=== PATIENT | male | born 1945 | race Caucasian/White ===

== ENCOUNTER 2022-08-10 09:38 | Day surgery (SDC) | payer MEDICARE, BC ==
[2022-08-04 15:41] LABS: BASOPHILS # (AUTO) 0.1 X10'3 (0-0.2); EOSINOPHILS # (AUTO) 0.4 X10'3 (0-0.9); EOSINOPHILS % (AUTO) 4.9 % (0-6); LYMPHOCYTES # (AUTO) 1.7 X10'3 (1.1-4.8); MEAN CORPUSCULAR HEMOGLOBIN 29.9 PG (27.0-31.0); MEAN CORPUSCULAR HGB CONC 33.4 g/dL (33.0-36.5); MEAN CORPUSCULAR VOLUME 89.7 FL (78-98); MEAN PLATELET VOLUME 7.7 FL (7.4-10.4); MONOCYTES # (AUTO) 0.8 X10'3 (0-0.9); MONOCYTES % (AUTO) 10.9 % (2-12); NEUTROPHILS # (AUTO) 4.7 X10'3 (1.8-7.7); NEUTROPHILS % (AUTO) 61.2 % (42-75); PRE OP HEMATOCRIT 47.3 % (42.0-52.0); PRE OP HEMOGLOBIN 15.8 g/dL (14.0-17.9); PRE OP PLATELET COUNT 156 X10'3 (140-440); RED BLOOD COUNT 5.27 X10'6 (4.70-6.10); RED CELL DISTRIBUTION WIDTH 13.9 % (11.5-14.5)
[2022-08-04 16:03] LABS: ALBUMIN 4.4 G/DL (3.4-5.0); ALBUMIN/GLOBULIN RATIO 1.2 (1.1-1.5); ALKALINE PHOSPHATASE 85 IU/L (46-116); BLOOD UREA NITROGEN 22 MG/DL (7-18); BUN/CREATININE RATIO 18.2 (5.4-32.0); CALCIUM 9.8 MG/DL (8.5-10.1); CHLORIDE 102 MMOL/L (99-107); CREATININE 1.21 MG/DL (0.60-1.10); PRE OP ALT 40 U/L (30-65); PRE OP ANION GAP 11 (8-16); PRE OP AST 24 U/L (10-37); PRE OP BILIRUB, TOTAL 2.7 MG/DL (0.0-1.0); PRE OP GLUCOSE 96 MG/DL (70-104); PRE OP POTASSIUM 3.9 MMOL/L (3.4-5.1); PRE OP SODIUM 141 MMOL/L (135-145); TOTAL CARBON DIOXIDE 27.7 MMOL/L (24-32); eGFR 58 ML/MIN
[~2022-08-10] VITALS: Ht 162.6 cm; Wt 67.3 kg
[2022-08-10] VITALS (8 sets, daily range): BP systolic 128–151; BP diastolic 79–85
[~2022-08-10 09:38] MED LIST: ASPI-611 PO; ATOR80TA PO; CENTRUM SILVER; CHANCA PIEDRA; DOCUMENT DATE & TIME OF BETA-BLOCKER PO ONE; GLIM4TAB7 PO; LISI40TA13 PO; METO-411 PO; acetaminophen 325mg tablet PO ONE; ceFAZolin inj. 2,000 MG in dextrose 5%-water 100 ML IV ONE; celeCOXIB 100mg capsule PO ONE; famotidine 20mg tablet PO ONE; gabapentin 300mg capsule PO ONE; metoclopramide 5 mg/ml inj IV ONE; oxyCODONE SR 10mg (sust. release) tab -2 tabs (20mg) PO ONE; ringers solution, lacted 1,000 ML IV ONE; tranexamic acid inj. 1,000 MG in normal saline IV soln 100ML IV ONE; vancomycin/NS 1 GM in NS 250 ML IV ONE
--- NOTE | 2022-08-10 10:15 | NUR ---
PT PREPARED FOR SURGERY, SEVERAL RED BLISTER TYPE WOUND ON LEFT CRONIN PRESENT, SENT BY PHYSICIAN. PT APPEARS TO BE NERVIOUS, AT BEDSIDE, ALL VALUABLES TO , GLASSES REMAIN ON PT. ANESTHESIA PRESENT, DR DRUMMOND ALSO AT BEDSIDE, MARKED LEFT LOWER LEG. PT INSTRUCTED ON HOW TO USE INCENTIVE SPIROMETRY AND EDUCATED ON CARE OF WOUND POST OP. BY KEEPING THE DRESSING/CAST CLEAN AND DRY. WE DISCUSSED DIFFERENT METHODS OF SHOWERING/BATHING TO KEEP DRESSING CLEAN.
[2022-08-10] MEDS ORDERED: ondansetron/PF 4mg/2ml inj IV PRN ×2 (12:50→16:50)
[2022-08-10] MEDS ORDERED: proCHLORperazine 10 MG/2 ml inj IV PRN ×2 (12:50→16:50)
[2022-08-10] MEDS ORDERED: morphine 2 MG/ML inj. syringe IV PRN ×2 (12:50→16:50)
[2022-08-10] MEDS ORDERED: ringers solution, lacted 1,000 ML IV SCH ×2 (12:50→16:50)
[2022-08-10] MEDS ORDERED: morphine 4 MG/ML inj SYRINge IV PRN ×2 (12:50→16:50)
[2022-08-10] MEDS ORDERED: meperidine/PF 25mg/ml syringe IV PRN ×6 (12:50→16:50)
[2022-08-10] MEDS ORDERED: BUPIVAcaine 0.5% inj/PF 0 ML ONE (13:37)
[2022-08-10] MEDS ORDERED: sevoflurane 250ml liquid IH ONE (14:45)
[2022-08-10] MEDS ORDERED: cloNIDine hcl/PF 100mcg/ml inj ONE (14:46)
[2022-08-10] MEDS ORDERED: midazolam 1 mg/ML 2ml injection ONE (15:07)
[2022-08-10] MEDS ORDERED: fentaNYL/PF 50MCG/1 ML 2ML syringe ONE (15:07)
[2022-08-10] MEDS ORDERED: ROPIVAcaine 0.5% (5mg/ml) 30ml vial ONE (15:08)
[2022-08-10] MEDS ORDERED: propofol inj 20 ML IV ONE (15:08)
[2022-08-10] MEDS ORDERED: LIDOcaine 2% (20mg/ml) 5ml vial ONE (15:08)
[2022-08-10] MEDS ORDERED: dexamethasone sod phosphate 4mg/ml inj. ONE (15:08)
[2022-08-10] MEDS ORDERED: ondansetron/PF 4mg/2ml inj ONE (15:21)
[2022-08-10] MEDS ORDERED: ePHEDrine 50MG/ML INJ. ONE (15:23)
--- NOTE | 2022-08-10 16:47 | NUR ---
Received from OR via [facility], accompanied by Anesthesiologist DR SOLORZANO and report given by Anesthesiolgist. PT PRESNTS WITH PIV 20G RIGHT WRIST, DRESSING ON LEFT FOOT CDI WITH BOOT. VSS. Addendum: 08/10/22 at 1709 by Jenni Silvestre RN, RN Amended: Links added.
[2022-08-10] MEDS ORDERED: labetalol 20mg/4ml (5mg/ml) syringe IV PRN (16:50)
[2022-08-10] MEDS ORDERED: hydrALAZINE 20mg/ml inj. IV PRN (16:50)
--- NOTE | 2022-08-10 17:57 | NUR ---
ABLE TO SAFELY AMBULATE AND TRANSFER SELF. IV TAKEN OUT WITHOUT ANY COMPLICATIONS. ALL DISCHARGE INSTRUCTIONS COVERED WITH PATIENT AND ALL QUESTIONS ANSWERED. PATIENT TAKEN OUT VIA WHEELCHAIR TO PERSONAL VEHICLE WHERE FAMILY/FRIEND DROVE PATIENT HOME. Addendum: 08/10/22 at 1805 by Jenni Silvestre RN, RN Amended: Links added.
== END 2022-08-10 17:57 | disposition home or self-care (01) ==
LOC: PAS 09:38
PROVIDERS: ATTEND Orthopaedic Surgery
DX: T84.7XXA Infection and inflammatory reaction due to other internal orthopedic prosthetic devices, implants and grafts, initial encounter (principal); E11.9 Type 2 diabetes mellitus without complications; I10 Essential (primary) hypertension; M16.12 Unilateral primary osteoarthritis, left hip; I25.10 Atherosclerotic heart disease of native coronary artery without angina pectoris; G89.18 Other acute postprocedural pain; Z96.643 Presence of artificial hip joint, bilateral; Z98.890 Other specified postprocedural states; Z95.1 Presence of aortocoronary bypass graft; Z88.5 Allergy status to narcotic agent; Z88.0 Allergy status to penicillin; Z88.8 Allergy status to other drugs, medicaments and biological substances; Z79.899 Other long term (current) drug therapy; Z79.84 Long term (current) use of oral hypoglycemic drugs; Z82.49 Family history of ischemic heart disease and other diseases of the circulatory system; Y83.8 Other surgical procedures as the cause of abnormal reaction of the patient, or of later complication, without mention of misadventure at the time of the procedure; Y92.89 Other specified places as the place of occurrence of the external cause
CPT/HCPCS: 20680; 36415; 64445; 73590; 76000; 80053; 82948; 85025; 86885; 86900; 86901; 87070; 87075; A6222; J0690; J0735; J1100; J2250; J2405; J2704; J2765; J2795; J3010; J3370; J3490; J7030; J7060; J7120; Z7506; Z7508; Z7512; A4215; A4618; A6253; A6446; A6449; A7000; S0020